=== PATIENT | male | born 1960 | race Caucasian/White ===

== ENCOUNTER 2024-03-14 21:04 | Observation (INO) | payer BC ==
[2024-03-14] MEDS ORDERED: Ondansetron PF 4 MG/2 ML Vial IVP PRN (22:12)
[2024-03-14] MEDS ORDERED: Glucagon 1 MG/ML KIT IM PRN (22:12)
[2024-03-14] MEDS ORDERED: Acetaminophen 325 MG TAB PO PRN (22:12)
[2024-03-14] MEDS ORDERED: Ondansetron ODT 4 MG TAB PO PRN (22:12)
[2024-03-14] MEDS ORDERED: Dextrose 50% Abboject 50 ML SYRINGE SLOW IVP PRN (22:12)
[2024-03-14] MEDS ORDERED: hydrALAZINE 20 MG/ML VIAL SLOW IVP PRN (22:12)
[2024-03-14] MEDS ORDERED: Dextrose 5% in Water 1,000 ML IV PRN (22:12)
[2024-03-14 22:22] VITALS: BMI 26.8
[2024-03-14] MEDS: Aspirin 81 mg Enteric Coated Tablet PO SCH (23:36)
[2024-03-14] MEDS: Fioricet 325/50/40 mg Tablet PO PRN (23:48)
[2024-03-15 04:38] LABS: Hemoglobin A1c 8.1 % (4.0-6.0)
[2024-03-15 04:42] LABS: #Basophils 0.05 10x3/uL (0.0-0.2); %Basophils 0.7 % (0.0-1.0); %Lymphocytes 26.4 % (21.0-51.0); %Monocytes 8.9 % (0.0-10.0); %Neutrophils 61.7 % (42.0-75.0); Hematocrit 35.4 % (42.0-52.0); Hemoglobin 12.1 g/dL (14.0-18.0); Mean Corpuscular HGB CONC 34.2 g/dL (32.0-36.0); Mean Corpuscular Hemoglobin 29.8 pg (27.0-31.0); Mean Corpuscular Volume 87.2 fL (78.0-98.0); Mean Platelet Volume 9.4 fL (7.4-10.4); Platelet Count 126 10x3/uL (130-400); RBC Distribution Width 12.7 % (11.5-14.5); Red Blood Cell (RBC) Count 4.06 mill/uL (4.70-6.10)
[2024-03-15 04:47] LABS: Anion Gap 13 mmol/L (10-20); BUN (Urea Nitrogen) 16 mg/dL (8.4-25.7); Calc. Creatinine Clearance 91 mL/min (70-130); Calcium 8.6 mg/dL (7.8-10.44); Carbon Dioxide 26 mmol/L (23-31); Cardiac Risk 3.4 (Less than 4.5); Chloride 106 mmol/L (98-107); Cholesterol 116 mg/dl (< 200 Desired); Estimated GFR 73; Glucose 200 mg/dL (80-115); HDL Cholesterol 34 mg/dL (>60 Neg Risk); LDL Cholesterol, Calculated 66 mg/dL; Magnesium 1.3 mg/dL (1.6-2.6); Potassium 4.8 mmol/L (3.5-5.1); Sodium 140 mmol/L (136-145); Triglycerides 79 mg/dL (Less than 150)
[2024-03-15] MEDS ORDERED: metFORMIN 500 MG TAB PO SCH (08:00)
[2024-03-15 08:20] VITALS: TEMP 98.5
[2024-03-15] MEDS: Multivitamin W/ Minerals 1 TAB PO SCH (08:25)
[2024-03-15] MEDS: Aspirin 325 MG TAB PO SCH (08:25)
[2024-03-15] MEDS: Insulin Glargine 30 UNITS/0.3 ML VIAL SC SCH (08:25)
[2024-03-15] MEDS: Magnesium Sulfate In Water 4 GM in Premix 1 BAG IVPB SCH (08:26)
[2024-03-15] MEDS ORDERED: Aspirin 81 mg Enteric Coated Tablet PO SCH (09:00)
[2024-03-15] MEDS ORDERED: Insulin Glargine 30 UNITS/0.3 ML VIAL SC SCH (09:00)
[2024-03-15 12:03] VITALS: BP 123/70
[2024-03-15] MEDS ORDERED: Rosuvastatin 20 MG TAB PO SCH ×2 (21:00)
[2024-03-17] MEDS ORDERED: metFORMIN 500 MG TAB PO SCH (08:00)
== END 2024-03-15 10:48 | disposition home or self-care (01) ==
LOC: 2SE 21:51
PROVIDERS: ADMIT Internal Medicine; ATTEND Internal Medicine
DX: G45.9 Transient cerebral ischemic attack, unspecified (principal); R47.1 Dysarthria and anarthria; E78.5 Hyperlipidemia, unspecified; E11.9 Type 2 diabetes mellitus without complications; Z88.5 Allergy status to narcotic agent; Z79.4 Long term (current) use of insulin; Z79.82 Long term (current) use of aspirin; Z79.899 Other long term (current) drug therapy; Z79.84 Long term (current) use of oral hypoglycemic drugs
CPT/HCPCS: 36415; 36416; 70551; 80048; 80061; 83036; 83735; 84443; 85025; 96374; G0378; J1815; J3475